=== PATIENT | male | born 1970 | race Caucasian/White ===

== ENCOUNTER 2017-05-23 15:03 | Emergency (ER) | payer SELFPAY ==
[2017-05-23 15:10] VITALS: BP 137/75; PULSE 79; TEMP 98.5; BMI 25.9
[2017-05-23] MEDS ORDERED: traMADol HCL 50 MG TABLET PO ONE (16:08)
[2017-05-23] MEDS ORDERED: DIPHTH,PERTUSS(ACELL),TET 0.5 ML DISP.SYRIN IM ONE (16:08)
[2017-05-23] MEDS ORDERED: CEPHALEXIN MONOHYDRATE 500 MG CAPSULE (UD) PO ONE (16:09)
[2017-05-23] MEDS ORDERED: traMADol HCL 50 MG TABLET ONE (16:11)
[2017-05-23] MEDS ORDERED: CEPHALEXIN MONOHYDRATE 500 MG CAPSULE (UD) ONE (16:12)
--- NOTE | 2017-05-23 16:16 | PDOC ---
History of Present Illness - General Chief Complaint: Injury Stated Complaint: LT TOENAIL INJURY Time Seen by Provider: 05/23/17 15:31 History Source: Patient - History of Present Illness Occurred: reports: just prior to arrival Lower Extremity Pain Location: left: 5th toe Method of Injury: Yes: direct blow Past History - Past Medical History Allergies/Adverse Reactions: Allergies Allergy/AdvReac Type Severity Reaction Status Date / Time No Known Allergies Allergy Verified 05/23/17 15:10 Home Medications: Ambulatory Orders Cephalexin [Keflex] 500 mg PO Q6H #27 capsule 05/23/17 Ibuprofen [Motrin -] 600 mg PO QID #28 tablet 05/23/17 Other medical history: NONE - Psycho/Social/Smoking Cessation Hx Anxiety: No Suicidal Ideation: No Smoking History: Never smoked Hx Alcohol Use: No Drug/Substance Use Hx: No Substance Use Type: None Review of Systems - Review of Systems Musculoskeletal: Yes: Joint Pain, Joint Swelling *Physical Exam - Vital Signs Last Vital Signs Temp Pulse Resp BP Pulse Ox 98.5 F 79 20 137/75 99 05/23/17 15:06 05/23/17 15:06 05/23/17 15:06 05/23/17 15:06 05/23/17 15:06 - Physical Exam General Appearance: Yes: Appropriately Dressed, Moderate Distress HEENT: positive: Normal Voice Neck: positive: Supple Respiratory/Chest: negative: Respiratory Distress Extremity: positive: Other (crush injury to distal L 5th toe w/ complete nail avulsion) Procedures - Laceration/Wound Repair Left Toe Wound Length: 2.6 to 5.0 cm Wound Explored: clean Wound's Depth, Shape: nail-avulsed, contused tissue Irrigated w/ Saline: Yes Betadine Prep: Yes Anesthesia: 1% Lidocaine Amount of Anesthetic (ccs): 8 Wound Repaired With: Sutures Suture Size/Type: 4:0, nylon Number of Sutures: 5 Sterile Dressing Applied: Yes ED Treatment Course - RADIOLOGY Radiology Studies Ordered: Category Date Time Status FOOT-LEFT [RAD] Stat Radiology 05/23/17 16:08 Ordered Medical Decision Making - Medical Decision Making 05/23/17 16:11 46-year-old male, no significant history here with crush injury to left fifth toe. 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 States work shoe he was wearing broke w/ impact. Patient limping in ED See exam Partial amputation w/ complete nail avulsion of L 5th toe -pain control -tetanus -XR -local wound care in ED -lac repair -abx if open fx -ortho f/u 05/23/17 16:18 05/23/17 16:55 Comminuted displaced fx to distal phalanx of L 5th toe. S/p wound irrigation w/ saline and betadine soak. 5, 4:0 nylon sutures were placed to plantar aspect of toe w/ xeroform and wound dressing. Pt dc w/ abx, ortho shoe and crutches w/ wound check in 2 days. Will f/u with ortho via worker's comp (pt does not currently have insurance) 05/23/17 17:15 *DC/Admit/Observation/Transfer Diagnosis at time of Disposition: Toe fracture, left Qualifiers: Encounter type: initial encounter Toe: unspecified toe Fracture type: open Fracture alignment: displaced Qualified Code(s): S92.912B - Unspecified fracture of left toe(s), initial encounter for open fracture - Discharge Dispostion Disposition: HOME Condition at time of disposition: Good - Prescriptions Prescriptions: Cephalexin [Keflex] 500 mg PO Q6H #27 capsule Ibuprofen [Motrin -] 600 mg PO QID #28 tablet - Referrals Referrals: Naya Pino MD [Primary Care Provider] - Juan Antonio Huerta MD [Staff Physician] - - Patient Instructions Printed Discharge Instructions: DI for Toe Fracture Additional Instructions: Wound covered and dry for 2 days and follow-up in the ER Sunday for wound check. Take antibiotics as prescribed. You will need to follow-up with orthopedic and should go through worker's comp as you do not have insurance. You can always return to ED if needs be for suture removal in 8-10 weeks - Post Discharge Activity Work/School Note: Back to Work
== END 2017-05-23 17:30 | disposition home or self-care (01) ==
LOC: JERFT 15:03
PROC: 0HQNXZZ Repair Left Foot Skin, External Approach (ICD-10-PCS; principal; 2017-05-23)
PROC: 3E0234Z Introduction of Serum, Toxoid and Vaccine into Muscle, Percutaneous Approach (ICD-10-PCS; 2017-05-23)
DX: S91.215A Laceration without foreign body of left lesser toe(s) with damage to nail, initial encounter (principal); W23.1XXA Caught, crushed, jammed, or pinched between stationary objects, initial encounter; Y93.89 Activity, other specified; Y92.9 Unspecified place or not applicable; Y99.0 Civilian activity done for income or pay
CPT/HCPCS: 73630-TC-LT; 90715; 99281-25

== ENCOUNTER 2017-05-25 15:37 | Emergency (ER) | payer SELFPAY ==
[2017-05-25 15:42] VITALS: BP 117/67; PULSE 78; TEMP 98.6; BMI 27.2
[2017-05-25] MEDS ORDERED: BACITRACIN 15 GM TUBE TOPICAL OINTMENT ONE (16:41)
[2017-05-25] MEDS ORDERED: BACITRACIN 15 GM TUBE TOPICAL OINTMENT TP ONE (16:52)
--- NOTE | 2017-05-25 16:58 | PDOC ---
Suture Removal/Wound Check HPI - History of Present Illness Chief Complaint: Revisit,Wound Recheck Stated Complaint: WOUND (FOLLOW-UP) Time Seen by Provider: 05/25/17 16:27 History Source: Yes: Patient Exam Limitations: Yes: No Limitations Treated at: [facility] ED - Previous ED Treatment Type of procedure performed on last visit: Yes: Laceration Repair Tetanus Immunization: Yes: Up to Date Antibiotics Prescribed: Yes - Onset of Previous Treatment Date of Occurence: 05/23/17 Comment:: 05/25/17 16:53 Patient returned to emergency department for evaluation and wound check of a open fracture/crush wound to left foot. Patient sustained 2 days ago with heavy metal pipe falling onto steel toed shoe and incurring an avulsion/partial amputation of left fifth digit. Patient is taking antibiotics, is using pain medication, and denies any excessive pain, swelling, fevers or other untoward effects. Is here for dressing change and wound evaluation. Past History - Travel Traveled outside of the country in the last 30 days: No Close contact w/someone who was outside of country & ill: No - Past Medical History Allergies/Adverse Reactions: Allergies No Known Allergies Allergy (Verified 05/25/17 15:39) Home Medications: Ambulatory Orders Cephalexin [Keflex] 500 mg PO Q6H #27 capsule 05/23/17 Ibuprofen [Motrin -] 600 mg PO QID #28 tablet 05/23/17 - Social History Smoking Status: Never smoked Suture Removal/Wound Check PE - Physical Exam Laceration/Wound Check Symptoms: reports: None, Pain Location of Laceration/Wound: left: Foot, Toe (ecchymosis, and swelling to midfoot extending to ankle without point tenderness except to fifth digit.) *Review of Systems - Review of Systems Able to Perform ROS?: Yes Constitutional: Yes: See HPI. No: Symptoms Reported, Chills, Fever HEENTM: No: Symptoms Reported Musculoskeletal: Yes: Symptoms Reported, See HPI Integumentary: Yes: Symptoms Reported, See HPI, Bruising Neurological: Yes: See HPI. No: Symptoms reported All Other Systems: Reviewed and Negative Procedures - Additional Procedures Progress: 05/25/17 16:55 Dressing to left fifth toe removed, wound healing appears with some nonvascularized tissue at distal tip of fifth toe. Suture line are intact, no evidence of significant cellulitis, streaking or other distress. Cleaned, and redressed with bacitracin ointment, Xeroform gauze, Telfa and bulky Kerlix dressing. Medical Decision Making - Medical Decision Making 05/25/17 16:56 Patient will return here in 7-10 days for suture removal. will continue antibiotics and pain medication. *DC/Admit/Observation/Transfer Diagnosis at time of Disposition: Visit for wound check - Discharge Dispostion Disposition: HOME Condition at time of disposition: Stable Admit: No - Patient Instructions Printed Discharge Instructions: How to Care for a Surgical Wound Additional Instructions: Rest, keep area elevated. Avoid strenuous activity or exercise until wound is healed Use hot soaks to area to bring more blood to the surface and encourage drainage May change dressings as needed to keep clean - then in 2 days, while in the shower remove dressing Allow water from shower to wash area thoroughly for 2-3 minutes, and pat dry upon exit of shower and replace dressing. Change his dressing daily until the wound is completely healed. The next 7 days then allow to air dry before sutures are removed in 10-14 days May use Tylenol or Motrin for mild pain relief Use stronger medications as directed and prescribed Continue all medications as prescribed Followup with private physician in 2-3 days for wound check Return to emergency Department for worsening swelling, pain, redness, fevers as needed - Post Discharge Activity Work/School Note: Back to Work
== END 2017-05-25 17:02 | disposition home or self-care (01) ==
LOC: JERFT 15:37
DX: Z48.02 Encounter for removal of sutures (principal)
CPT/HCPCS: 99281-25